=== PATIENT | male | born 1965 | race Caucasian/White ===

== ENCOUNTER 2016-12-29 09:38 | Emergency (ER) ==
[2016-12-29 09:39] VITALS: BMI 32.5
[2016-12-29 10:00] VITALS: BP 149/86; TEMP 96.3
--- NOTE | 2016-12-29 10:01 | ED.PDOC ---
General ED Provider: Dr. CARISA GARCIA JR Chief Complaint: Abdominal Pain Stated Complaint: NAUSEA , VOMITING , DIARRHEA, ABD PAIN[End]since yesterday 96.3 87 18 96% 149/86 01/03 PEPTO BISMOL TODAY. IMMODIUM AD YESTERDAY Time Seen by Physician: 10:01 Mode of Arrival: Walk-In Information Source: Patient Exam Limitations: No limitations Nursing and Triage Documentation Reviewed and Agree: No Review of Systems - Review Of Systems Constitutional: Reports: Malaise, Weakness Eyes: Reports: No symptoms Ears, Nose, Mouth, Throat: Reports: No symptoms Respiratory: Reports: No symptoms Cardiac: Reports: No symptoms GI: Reports: Diarrhea, Nausea, Vomiting : Reports: No symptoms Musculoskeletal: Reports: No symptoms Skin: Reports: No symptoms Neurological: Reports: No symptoms Endocrine: Reports: No symptoms Hematologic/Lymphatic: Reports: No symptoms All Other Systems: Other Past Medical History - Past Medical History Previously Healthy: Yes Endocrine: Reports: Unknown Cardiovascular: Reports: Unknown Respiratory: Reports: None, Unknown Hematological: Reports: None, Unknown Gastrointestinal: Reports: Unknown Genitourinary: Reports: Unknown Neuro/Psych: Reports: Unknown Musculoskeletal: Reports: None Cancer: Reports: Unknown - Surgical History General Surgical History: Reports: Orthopedic (conveyor fell on feet multiple surgeries ) - Family History Family History: Reports: Unknown - Social History Smoking Status: Former smoker Hx Substance Use: No Alcohol Screening: None Physical Exam - Physical Exam Appearance: Well-appearing, Obese Ill-appearing: Moderate Pain Distress: Moderate Eyes: MAUREEN, EOMI, Conjunctiva clear ENT: Ears normal, Nose normal, Oropharynx normal Neck: Supple Respiratory: Airway patent, Breath sounds clear, Breath sounds equal, Respirations nonlabored Cardiovascular: RRR, Pulses normal, No rub, No murmur GI/: Soft, Nontender, No masses, Bowel sounds normal, No Organomegaly Musculoskeletal: Normal strength, ROM intact, No edema, No calf tenderness Skin: Warm, Dry, Normal color Neurological: Sensation intact, Motor intact, Reflexes intact, Cranial nerves intact, Alert, Oriented Psychiatric: Affect appropriate, Mood appropriate Critical Care Note - Critical Care Note Total Time (mins): 0 Course - Course Hematology/Chemistry: 12/29/16 10:30 12/29/16 10:30 Orders, Labs, Meds: Lab Review 12/29/16 10:30 WBC 9.20 RBC 5.60 Hgb 16.8 Hct 49.4 MCV 88.2 MCH 30.0 MCHC 34.0 RDW Coeff of Kwasi 14.5 Plt Count 285 Immature Gran % (Auto) 0.8 Neut % (Auto) 75.8 Lymph % (Auto) 13.2 [place] % (Auto) 7.4 Eos % (Auto) 2.6 Baso % (Auto) 0.2 Immature Gran # (Auto) 0.1 Neut # 7.0 H Lymph # 1.2 [place] # 0.7 Eos # 0.2 Baso # 0.0 Sodium 138 Potassium 4.4 Chloride 107 Carbon Dioxide 21 Anion Gap 14.4 BUN 23 H Creatinine 0.93 Estimated GFR (MDRD) 85.00 BUN/Creatinine Ratio 24.73 Glucose 135 H Calcium 9.3 Magnesium 2.1 Total Bilirubin 0.33 AST 21 ALT 36 Alkaline Phosphatase 130 Total Protein 7.6 Albumin 3.8 Globulin 3.8 Albumin/Globulin Ratio 1.00 Amylase 55 Lipase 35 H. pylori IgG Antibody Negative Orders Category Date Time Status ED IV/MEDIPORT/POWERPORT .ONCE EMERGENCY 12/29/16 10:22 Active IV [ED IV/MEDIPORT/POWERPORT] .ONCE EMERGENCY 12/29/16 10:21 Active AMYLASE Stat LAB 12/29/16 10:30 Completed CBC W/ AUTO DIFF Stat LAB 12/29/16 10:30 Completed COMPREHENSIVE METABOLIC PANEL Stat LAB 12/29/16 10:30 Completed H. PYLORI SCREEN Stat LAB 12/29/16 10:30 Completed LIPASE Stat LAB 12/29/16 10:30 Completed MAGNESIUM Stat LAB 12/29/16 10:30 Completed 0.9 % Sodium Chloride [Saline Flush] MEDS 12/29/16 10:21 Discontinued 1 syr IVF PRN PRN Ondansetron HCl/Pf [Zofran 4 mg/2 ml] MEDS 12/29/16 10:46 Discontinued 4 mg IM ONCE STA Ondansetron HCl/Pf [Zofran 4 mg/2 ml] MEDS 12/29/16 10:24 Discontinued 4 mg IVP ONCE STA Medications Discontinued Medications Generic Name Dose Route Start Last Admin Trade Name Freq PRN Reason Stop Dose Admin Ondansetron HCl 4 mg 12/29/16 10:24 12/29/16 13:11 Zofran 4 Mg/2 Ml IVP 12/29/16 10:25 Not Given ONCE STA Ondansetron HCl 4 mg 12/29/16 10:46 12/29/16 10:58 Zofran 4 Mg/2 Ml IM 12/29/16 10:47 4 mg ONCE STA Administration Sodium Chloride 1 syr 12/29/16 10:21 Saline Flush IVF PRN PRN To flush IV Vital Signs: Temp Pulse Resp BP Pulse Ox 12/29/16 09:42 96.3 F L 87 18 149/86 H 96 Departure - Departure Time of Disposition: 12:48 Disposition: HOME SELF-CARE Discharge Problem: Gastroenteritis Instructions: Gastroenteritis (ED) Condition: Fair Pt referred to PMD for follow-up: Yes Additional Instructions: increase fluids 8-10 cups daily for three days Zofran four times a day as needed for nausea peptobismol for loose stools return if fever over 101.0 if not voiding more than three times each day Prescriptions: Ondansetron HCl [Zofran Tab] 4 mg PO QID PRN #12 tablet PRN Reason: Nausea / Vomiting Promethazine HCl [Phenergan Tab] 25 mg PO QID PRN #12 tablet PRN Reason: Nausea / Vomiting Allergies/Adverse Reactions: Allergies No Known Allergies Allergy (Verified 12/29/16 09:41) Home Medications: Ambulatory Orders Ondansetron HCl [Zofran Tab] 4 mg PO QID PRN #12 tablet 12/29/16 Promethazine HCl [Phenergan Tab] 25 mg PO QID PRN #12 tablet 12/29/16 Disposition Discussed With: Patient
[2016-12-29] MEDS ORDERED: ZOFRAN 4 MG/2 ML IVP STA (10:24)
[2016-12-29 10:43] LABS: BASOPHILS % (AUTO) 0.2 % (0.0-3.0); EOSINOPHILS # (AUTO) 0.2 K/ul (0.0-0.7); EOSINOPHILS % (AUTO) 2.6 % (0.0-7.0); HEMATOCRIT 49.4 % (42.0-52.0); HEMOGLOBIN 16.8 g/dl (14.0-18.0); IMMATURE GRANULOCYTE % (AUTO) 0.8 % (0.0-5.0); LYMPHOCYTES # (AUTO) 1.2 K/uL (0.60-3.4); LYMPHOCYTES % (AUTO) 13.2 (10.0-50.0); MEAN CORPUSCULAR VOLUME 88.2 fl (80.0-94.0); MONOCYTES # (AUTO) 0.7 K/uL (0.4-2.0); MONOCYTES % (AUTO) 7.4 (0-10); NEUTROPHILS % (AUTO) 75.8; PLATELET COUNT 285 10^3/uL (140-440)
[2016-12-29] MEDS ORDERED: ZOFRAN 4 MG/2 ML IM STA (10:46)
[2016-12-29 11:01] LABS: H. PYLORI ANTIBODY NEGATIVE (NEGATIVE); H.PYLORI INTERNAL QC INTERNAL QC VALID
[2016-12-29 11:44] LABS: ALBUMIN 3.8 g/dL (3.4-5.0); ANION GAP 14.4; BILIRUBIN,TOTAL 0.33 mg/dL (0.00-1.20); BUN/CREATININE RATIO 24.73; CALCIUM 9.3 mg/dL (8.2-10.2); CREATININE 0.93 mg/dL (0.60-1.10); MAGNESIUM 2.1 mg/dL (1.7-2.2); POTASSIUM 4.4 mmol/L (3.5-5.1); TOTAL PROTEIN 7.6 g/dL (6.4-8.2)
== END 2016-12-29 13:18 | disposition home or self-care (01) ==
LOC: ED 09:38
DX: K52.9 Noninfective gastroenteritis and colitis, unspecified (principal)
CPT/HCPCS: 36415; 80053; 82150; 83690; 83735; 85025; 86677; 96372; 99283

== ENCOUNTER 2017-09-27 23:38 | Emergency (ER) ==
[2017-09-27 23:49] VITALS: BP 135/91; TEMP 98.2; BMI 35.2
--- NOTE | 2017-09-28 00:05 | ED.PDOC ---
General ED Provider: Dr. HAM RAMOS Chief Complaint: Abdominal Pain Stated Complaint: Patient states that he has been having right groin pain for the past 3 -4 days. He has also been lifting his family member whos is disabled and every time he tries to lift it hurts. Also every time he tries to bend or twist the pain is worse. Denies any nausea vomiting or anorexia. Time Seen by Physician: 00:03 Mode of Arrival: Walk-In Information Source: Patient Exam Limitations: No limitations Nursing and Triage Documentation Reviewed and Agree: Yes GI Complaint Exam - Abdominal Pain Complaint/Exam Onset: Sudden Duration: 4 days Symptoms Are: Still present Timing: Constant Initial Severity: Severe Current Severity: Mild Location of Pain: RLQ Radiates To: Reports: Inguinal Character: Reports: Sharp Aggravating: Reports: Movement Alleviating: Reports: Position Associated Signs and Symptoms: Denies: Diaphoresis, Fever, Cough, Chest pain, Dizziness, Back pain, Constipation, Blood in stool, Dysuria, Urinary frequency, Decreased urine output, Decreased appetite, Discharge, Nausea, Vomiting, Diarrhea, Decreased activity AAA Risk Factors: Reports: None Testicular Torsion Risk Factors: Reports: None Surgical Obstruction Risk Factors: Reports: None Related Surgical History: Reports: None Abdominal Findings: Present: [place]'s Point tender, Hernia. Absent: Pulsatile mass, Abdominal distention, Unequal femoral pulses, Rebound tenderness , Peritoneal signs, CVA Tenderness Rectal Exam: Present: Normal Findings Differential Diagnoses: Appendicitis, Bowel Obstruction, Pancreatitis, Renal Colic Review of Systems - Review Of Systems Constitutional: Reports: No symptoms Eyes: Reports: No symptoms Ears, Nose, Mouth, Throat: Reports: No symptoms Respiratory: Reports: No symptoms Cardiac: Reports: No symptoms GI: Reports: Abdominal pain (Right lower quadrant) : Reports: No symptoms Musculoskeletal: Reports: Joint pain (right hip area pain ) Skin: Reports: No symptoms Neurological: Reports: No symptoms Endocrine: Reports: No symptoms Hematologic/Lymphatic: Reports: No symptoms All Other Systems: Reviewed and Negative Past Medical History - Past Medical History Previously Healthy: Yes Endocrine: Reports: Unknown Cardiovascular: Reports: Unknown Respiratory: Reports: None, Unknown Hematological: Reports: None, Unknown Gastrointestinal: Reports: Unknown Genitourinary: Reports: Unknown Neuro/Psych: Reports: Unknown Musculoskeletal: Reports: None Cancer: Reports: Unknown - Surgical History General Surgical History: Reports: Orthopedic (conveyor fell on feet multiple surgeries ) - Family History Family History: Reports: Unknown - Social History Smoking Status: Former smoker Hx Substance Use: No Alcohol Screening: None - Immunizations Tetanus Shot up to Date: No Physical Exam - Physical Exam Appearance: Ill-appearing, Obese Ill-appearing: Moderate Pain Distress: Severe Neck: Supple Respiratory: Airway patent, Breath sounds clear, Breath sounds equal, Respirations nonlabored Cardiovascular: RRR, Pulses normal, No rub, No murmur GI/: Bowel sounds normal, Tender Musculoskeletal: Limited ROM (Right hip pain with Range of motion.) Skin: Warm, Dry, Normal color Neurological: Sensation intact, Alert, Oriented Psychiatric: Anxious Interpretation - Radiology Interpretation Radiology Interpretation By: Radiologist Radiology Results: No acute changes (Diverticulosis) Exam Interpreted: CT Scan Critical Care Note - Critical Care Note Total Time (mins): 0 Course - Course Hematology/Chemistry: 09/28/17 00:13 09/28/17 00:13 Orders, Labs, Meds: Lab Review 09/28/17 09/28/17 09/28/17 00:05 00:13 00:13 WBC 7.50 RBC 5.13 Hgb 15.4 Hct 44.5 MCV 86.7 MCH 30.0 MCHC 34.6 RDW Coeff of Kwasi 14.3 Plt Count 238 Immature Gran % (Auto) 0.7 Neut % (Auto) 59.3 Lymph % (Auto) 28.3 [place] % (Auto) 9.2 Eos % (Auto) 2.0 Baso % (Auto) 0.5 Immature Gran # (Auto) 0.1 Neut # 4.5 Lymph # 2.1 [place] # 0.7 Eos # 0.2 Baso # 0.0 Sodium 141 Potassium 3.8 Chloride 107 Carbon Dioxide 24 Anion Gap 13.8 BUN 20 H Creatinine 0.86 Estimated GFR (MDRD) 93.00 BUN/Creatinine Ratio 23.25 Glucose 177 H Calcium 9.1 Total Bilirubin 0.17 AST 19 ALT 27 Alkaline Phosphatase 95 Total Protein 6.7 Albumin 3.3 L Globulin 3.4 Albumin/Globulin Ratio 0.97 Amylase 25 Lipase 17 Urine Color Yellow Urine Clarity Clear Urine pH 6.5 Ur Specific [place] 1.020 Urine Protein Negative Urine Glucose (UA) Negative Urine Ketones Negative Urine Blood Trace-lysed Urine Nitrite Negative Urine Bilirubin Negative Urine Urobilinogen 1.0 Ur Leukocyte Esterase Negative Urine Microscopic RBC 0-2 Ur Squamous Epith Cells 0-2 Orders Category Date Time Status AMYLASE Stat LAB 09/28/17 00:13 Completed CBC W/ AUTO DIFF Stat LAB 09/28/17 00:13 Completed COMPREHENSIVE METABOLIC PANEL Stat LAB 09/28/17 00:13 Completed LIPASE Stat LAB 09/28/17 00:13 Completed URINALYSIS C & S IF INDICATED Stat LAB 09/28/17 00:05 Completed Tramadol HCl [Ultram] MEDS 09/28/17 00:57 Discontinued 50 mg PO ONCE STA CT ABD/PEL WO RENAL STONE PROT Stat RADS 09/28/17 00:02 Completed Medications Discontinued Medications Generic Name Dose Route Start Last Admin Trade Name Freq PRN Reason Stop Dose Admin Tramadol HCl 50 mg 09/28/17 00:57 09/28/17 01:02 Ultram PO 09/28/17 00:58 50 mg ONCE STA Administration Vital Signs: Temp Pulse Resp BP Pulse Ox 09/27/17 23:38 98.2 F 85 20 135/91 H 94 L Departure - Departure Time of Disposition: 00:50 Disposition: HOME SELF-CARE Discharge Problem: Abdominal pain Instructions: Acute Abdominal Pain (ED) Condition: Fair Pt referred to PMD for follow-up: Yes Additional Instructions: Follow up with PCP in 3 days. Rest from lifting. Prescriptions: Tramadol HCl [Ultram] 50 mg PO Q6H PRN #14 tablet PRN Reason: Severe Pain Allergies/Adverse Reactions: Allergies codeine [From Tylenol-Codeine #3] Adverse Reaction (Verified 09/27/17 23:50) "GET REAL HOT" Home Medications: Ambulatory Orders Tramadol HCl [Ultram] 50 mg PO Q6H PRN #14 tablet 09/28/17
[2017-09-28 00:19] LABS: BASOPHILS % (AUTO) 0.5 % (0.0-3.0); EOSINOPHILS # (AUTO) 0.2 K/ul (0.0-0.7); HEMATOCRIT 44.5 % (42.0-52.0); HEMOGLOBIN 15.4 g/dl (14.0-18.0); IMMATURE GRANULOCYTE % (AUTO) 0.7 % (0.0-5.0); LYMPHOCYTES # (AUTO) 2.1 K/uL (0.60-3.4); LYMPHOCYTES % (AUTO) 28.3 (10.0-50.0); MEAN CORPUSCULAR HGB CONC 34.6 (31.8-35.4); MEAN CORPUSCULAR VOLUME 86.7 fl (80.0-94.0); MONOCYTES # (AUTO) 0.7 K/uL (0.4-2.0); MONOCYTES % (AUTO) 9.2 (0-10); NEUTROPHILS # (AUTO) 4.5 K/ul (2.0-6.9); NEUTROPHILS % (AUTO) 59.3; PLATELET COUNT 238 10^3/uL (140-440); RED BLOOD COUNT 5.13 10^6/ul (4.70-6.10)
[2017-09-28 00:22] LABS: ADD URINE MICROSCOPIC YES; BILIRUBIN,URINE Negative (NEGATIVE); KETONES,URINE Negative (NEGATIVE); LEUKOCYTE ESTERASE ,URINE Negative (NEGATIVE); NITRITE,URINE Negative (NEGATIVE); PH,URINE 6.5 (5-9); PROTEIN,URINE Negative (NEGATIVE); URINE, BLOOD Trace-lysed (NEGATIVE)
[2017-09-28 00:39] LABS: ALBUMIN 3.3 g/dL (3.4-5.0); ALBUMIN/GLOBULIN RATIO 0.97; ANION GAP 13.8; BILIRUBIN,TOTAL 0.17 mg/dL (0.00-1.20); BUN/CREATININE RATIO 23.25; CALCIUM 9.1 mg/dL (8.2-10.2); CREATININE 0.86 mg/dL (0.60-1.10); POTASSIUM 3.8 mmol/L (3.5-5.1); TOTAL PROTEIN 6.7 g/dL (6.4-8.2)
--- NOTE | 2017-09-28 00:46 | CT ---
EXAM: CT of the abdomen and pelvis without contrast. HISTORY: Abdominal pain. PROCEDURE: Contiguous axial CT images of the abdomen and pelvis without contrast with coronal and sa gittal reformats. FINDINGS: Comparison made with CT of 10/26/2014. There is a stable 0.4 cm nodule in the right lung/lo wer lobe. The liver, gallbladder, pancreas, spleen, adrenal glands and left kidney are normal in [place]. There is a fluid density cyst in the right kidney. No nephrolithiasis, ureterolithiasis or h ydronephrosis. The abdominal aorta is within normal limits in diameter. The appendix is normal in ap [place]. There is diverticulosis of the colon with no evidence of diverticulitis. No free fluid or free air in the abdomen or pelvis. The bladder is minimally filled with no abnormality identified. The seminal vesicles and prostate gland are unremarkable. There are degenerative changes in the spin e. Impression: Diverticulosis of the colon without diverticulitis. Right renal cyst. Stable 0.4 cm nodule in the right lung/lower lobe. No further follow-up required.
[2017-09-28] MEDS ORDERED: ULTRAM PO STA (00:57)
== END 2017-09-28 01:09 | disposition home or self-care (01) ==
LOC: ED 23:38
DX: R10.31 Right lower quadrant pain (principal)
CPT/HCPCS: 36415; 74176; 80053; 81001; 82150; 83690; 85025; 99283

== ENCOUNTER 2017-11-17 09:32 | Outpatient (CLI) ==
[2013-04-05 06:40] VITALS: TEMP 97.8
--- NOTE | 2017-11-17 09:52 | DI ---
EXAM: PA and lateral views of the chest HISTORY: Cough with history of asthma COMPARISON: Chest x-ray 10/13/2014, CT chest 04/05/2013 and multiple priors FINDINGS: The cardiomediastinal silhouette is normal. There is no pneumothorax or pleural effusion. There is no consolidation, nodule or mass. The osseous structures are stable. IMPRESSION: No acute cardiopulmonary process
== END 2017-11-17 09:33 | disposition home or self-care (01) ==
LOC: RAD 09:32
PROVIDERS: ATTEND Family Medicine
DX: R05 Cough (principal); Z87.09 Personal history of other diseases of the respiratory system

== ENCOUNTER 2018-01-27 16:04 | Outpatient (CLI) ==
[2013-04-05 06:40] VITALS: TEMP 97.8
== END 2018-01-27 16:05 | disposition home or self-care (01) ==
LOC: FCC-LAB 16:04
PROVIDERS: ATTEND Family Medicine
DX: R31.9 Hematuria, unspecified (principal)
CPT/HCPCS: 87086

== ENCOUNTER 2018-02-24 13:02 | Outpatient (CLI) ==
[2013-04-05 06:40] VITALS: TEMP 97.8
== END 2018-02-24 13:03 | disposition home or self-care (01) ==
LOC: FCC-LAB 13:02
PROVIDERS: ATTEND Family Medicine
DX: Z86.39 Personal history of other endocrine, nutritional and metabolic disease (principal)
CPT/HCPCS: 36415; 80053; 83036

== ENCOUNTER 2018-03-03 08:21 | Outpatient (CLI) ==
[2013-04-05 06:40] VITALS: TEMP 97.8
--- NOTE | 2018-03-03 09:20 | US ---
EXAM: Scrotal ultrasound. History: Enlarged testicles. Technique: Multiple sonographic images through the scrotum were obtained. Color duplex Doppler was used to interrogate vascular flow. Findings: The right testicle measures 4.3 cm x 2.7 cm x 2.7 cm. Blood flow was documented within the right maria teresa ticle. No right intratesticular masses are identified. The right epididymis is not hyperemic. The left testicle measures 4.2 cm x 2.3 cm x 2.9 cm. Blood flow was documented within the left testic le. No left intratesticular masses are identified. 5 mm left epididymal head cyst. The left epidid ymis is not hyperemic. There is skin thickening and subcutaneous edema involving the left scrotal sac. Moderate bilateral hydroceles. No varicoceles identified. Impression: 1. Normal bilateral testicles. 2. Moderate bilateral hydroceles. 3. Small left epididymal head cyst. 4. Skin thickening and subcutaneous edema involving the left scrotal sac. Correlate for cellulitis.
== END 2018-03-03 08:22 | disposition home or self-care (01) ==
LOC: RAD 08:21
PROVIDERS: ATTEND Family Medicine
DX: N50.89 Other specified disorders of the male genital organs (principal)

== ENCOUNTER 2018-03-09 09:48 | Outpatient (CLI) ==
[2013-04-05 06:40] VITALS: TEMP 97.8
--- NOTE | 2018-03-09 11:06 | DI ---
EXAM: Radiographs, sacrum and coccyx HISTORY: Back pain. COMPARISON: Pelvic CT 09/28/2017. TECHNIQUE: Three views. FINDINGS: Bone mineralization is normal. Sacral arcuate lines appear intact. Some ankylosis of the left sacroiliac joint suggested. Right sacroiliac joint is normal. Curvature and alignment are nor mal without fracture Lower lumbar degenerative changes are incompletely imaged. Soft tissues are unr emarkable. IMPRESSION: 1. No acute fracture. 2. 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 3. Lower lumbar degenerative changes, incompletely imaged.
== END 2018-03-09 09:49 | disposition home or self-care (01) ==
LOC: RAD 09:48
PROVIDERS: ATTEND Nurse Practitioner Family
DX: K62.89 Other specified diseases of anus and rectum (principal)

== ENCOUNTER 2018-03-10 09:49 | Outpatient (CLI) ==
[2013-04-05 06:40] VITALS: TEMP 97.8
== END 2018-03-10 09:50 | disposition home or self-care (01) ==
LOC: FCC-LAB 09:49
PROVIDERS: ATTEND Family Medicine
DX: E11.9 Type 2 diabetes mellitus without complications (principal); G62.89 Other specified polyneuropathies
CPT/HCPCS: 36415; 80061; 82043; 82607

== ENCOUNTER 2018-05-20 09:54 | Outpatient (CLI) ==
[2013-04-05 06:40] VITALS: TEMP 97.8
== END 2018-05-20 09:55 | disposition home or self-care (01) ==
LOC: FCC-LAB 09:54
PROVIDERS: ATTEND Family Medicine
DX: R35.0 Frequency of micturition (principal); R31.9 Hematuria, unspecified
CPT/HCPCS: 36415; 81001

== ENCOUNTER 2018-07-19 23:58 | Emergency (ER) | payer OTHER ==
[2018-07-20 00:06] VITALS: TEMP 98.9
--- NOTE | 2018-07-20 00:35 | ED.PDOC ---
General ED Provider: Dr. HAM RAMOS Chief Complaint: Chest Wall Injury/Pain Stated Complaint: Pateint states that he lifted furiture now has severe pain on the chest that is intermittent. Denies any Trauma to the chest Time Seen by Physician: 00:15 Mode of Arrival: Walk-In Information Source: Patient Exam Limitations: No limitations Primary Care Provider: NIRMALA MCGRATH Nursing and Triage Documentation Reviewed and Agree: Yes Does patient meet sepsis criteria?: No System Inflammatory Response Syndrome: Not Applicable Sepsis Protocol: For patient's 13 years and over: Temp is 96.8 and below OR 101 and greater Pulse >90 BPM Resp >20/minute Acutely Altered Mental Status Are patient's symptoms suggestive of a new infection, such as: -Pneumonia -Skin, Soft Tissue -Endocarditis -UTI -Bone, Joint Infection -Implantable Device -Acute Abdominal Infection -Wound Infection -Meningitis -Blood Stream Catheter Infection -Unknown Cardiovascular Complaint Exam - Chest Pain Complaint/Exam Onset: Sudden Duration: 1 day Symptoms Are: Still present Timing: Intermittent Length of Chest Pain Episodes: few sec Location: Reports: Left anterior Pain Radiates: Reports: Back Character: Reports: Sharp Aggravating: Reports: Deep breaths Alleviating: Reports: Spontaneous resolution Associated Signs and Symptoms: Reports: Back pain. Denies: Diaphoresis, Nausea , Vomiting, Fever, Palpitations, Cough, Hemoptysis, Abdominal pain, Dizziness, Short of air, Calf pain, Calf swelling Related History: Denies: Similar episode, Current Michael Inhibitors, Current ARBs, Current Beta Hazel, Current Ca [place].Hazel, Current Diuretic, Rx noncompliance AMI/ACS Risk Factors: Reports: Diabetes, Hypertension, Smoking TAD Risk Factors: Reports: Hypertension, Smoking Pulmonary Embolism Risk Factors: Reports: Smoking Prior Care for this Complaint: No Recent Stress Test: No Recent Echo/LV Function: No JVD Present: No Subcutaneous Emphysema Present: No Diminshed Breath Sounds: No Reproducible Chest Wall Pain: No Bilateral Pulses Present: No Unequal Pulses Noted: No If Risk Factors for AMI/ACS Consider: EKG, Cardiac Enzymes Quality Indicator For Non-Traumatic Chest Pain/Syncope: EKG Performed Review of Systems - Review Of Systems Constitutional: Reports: No symptoms Eyes: Reports: No symptoms Ears, Nose, Mouth, Throat: Reports: No symptoms Respiratory: Reports: No symptoms Cardiac: Reports: Chest pain (with deep inspiration ) GI: Reports: No symptoms : Reports: No symptoms Musculoskeletal: Reports: No symptoms Skin: Reports: No symptoms Neurological: Reports: Anxiety Endocrine: Reports: No symptoms Hematologic/Lymphatic: Reports: No symptoms All Other Systems: Reviewed and Negative Past Medical History - Past Medical History Previously Healthy: Yes Endocrine: Reports: DM 2, Dyslipidemia Cardiovascular: Reports: Hypertension Respiratory: Reports: None, Unknown Hematological: Reports: None Gastrointestinal: Reports: None Genitourinary: Reports: None Neuro/Psych: Reports: None Musculoskeletal: Reports: None Cancer: Reports: None - Surgical History General Surgical History: Reports: Orthopedic (conveyor fell on feet multiple surgeries ) - Family History Family History: Reports: Unknown - Social History Smoking Status: Former smoker Hx Substance Use: No Alcohol Screening: None - Immunizations Tetanus Shot up to Date: No Physical Exam - Physical Exam Appearance: Ill-appearing, Well-nourished Pain Distress: Severe (but is intermitent) Eyes: MAUREEN, EOMI, Conjunctiva clear ENT: Oropharynx normal Neck: Supple Respiratory: Airway patent, Breath sounds clear, Breath sounds equal, Respirations nonlabored Cardiovascular: RRR, Pulses normal, No rub, No murmur GI/: Soft, Nontender, No masses, Bowel sounds normal, No Organomegaly Musculoskeletal: Normal strength, ROM intact, No edema, No calf tenderness Skin: Warm, Dry, Normal color Neurological: Sensation intact, Motor intact, Reflexes intact, Cranial nerves intact, Alert, Oriented Psychiatric: Affect appropriate, Mood appropriate Interpretation - Radiology Interpretation Radiology Interpretation By: ED Physician Radiology Results: Negative Exam Interpreted: Portable CXR Radiology Interpretation By: Radiologist Radiology Results: Negative Exam Interpreted: CT Scan (PE protochol negative for PE ) - EKG Interpretation Time of EKG #1: 00:27 Rate: Normal Rhythm: Sinus Ectopy: None [place]: [place] 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 Course - Course Hematology/Chemistry: 07/20/18 00:30 07/20/18 00:30 Orders, Labs, Meds: Lab Review 07/20/18 07/20/18 07/20/18 00:30 00:30 00:30 WBC 8.88 RBC 5.04 Hgb 15.3 Hct 44.2 MCV 87.7 MCH 30.4 MCHC 34.6 RDW Coeff of Kwasi 13.8 Plt Count 247 Immature Gran % (Auto) 0.2 Neut % (Auto) 65.1 Lymph % (Auto) 26.1 [place] % (Auto) 6.6 Eos % (Auto) 1.5 Baso % (Auto) 0.5 Immature Gran # (Auto) 0.0 Neut # (Auto) 5.8 Lymph # (Auto) 2.3 [place] # (Auto) 0.6 Eos # (Auto) 0.1 Baso # (Auto) 0.0 D-Dimer (Manual) 776.86 Sodium 137.7 Potassium 3.56 Chloride 105.6 Carbon Dioxide 24.2 Anion Gap 11.46 BUN 26.1 H Creatinine 0.83 Estimated GFR (MDRD) 96.00 BUN/Creatinine Ratio 31.44 Glucose 104.5 Calcium 9.17 Total Bilirubin 0.36 AST 31.8 ALT 21.6 Alkaline Phosphatase 110.4 Total Creatine Kinase 112.5 Troponin I < 0.012 Total Protein 7.78 Albumin 4.17 Globulin 3.61 Albumin/Globulin Ratio 1.15 Orders Category Date Time Status EKG-(ED ONLY) Stat CARDIO 07/20/18 00:26 Completed NPO REMINDER: IMAGING ONCE CARE 07/20/18 01:54 Active ED IV/MEDIPORT/POWERPORT .ONCE EMERGENCY 07/20/18 01:53 Active CBC W/ AUTO DIFF Stat LAB 07/20/18 00:30 Completed COMPREHENSIVE METABOLIC PANEL Stat LAB 07/20/18 00:30 Completed CREATINE KINASE Stat LAB 07/20/18 00:30 Completed D-DIMER Stat LAB 07/20/18 00:30 Completed TROPONIN I Stat LAB 07/20/18 00:30 Completed 0.9 % Sodium Chloride [Saline Flush] MEDS 07/20/18 01:53 Discontinued 1 syr IVF PRN PRN Hydromorphone HCl [Dilaudid 1 mg/ml Syringe] MEDS 07/20/18 01:53 Discontinued 1 mg IVP ONCE STA Ketorolac Tromethamine [Toradol] MEDS 07/20/18 00:49 Discontinued 60 mg IM ONCE STA Ondansetron HCl/Pf [Zofran 4 mg/2 ml] MEDS 07/20/18 01:53 Discontinued 4 mg IVP ONCE STA Sodium Chloride 0.9% [Sodium Chloride] 1,000 ml MEDS 07/20/18 01:53 Discontinued IV BOLUS CHEST, 1V AP ONLY Stat RADS 07/20/18 00:[address] CHEST PE PROTOCOL Stat RADS 07/20/18 01:53 Completed Medications Discontinued Medications Generic Name Dose Route Start Last Admin Trade Name Freq PRN Reason Stop Dose Admin Hydromorphone HCl 1 mg 07/20/18 01:53 07/20/18 02:09 Dilaudid 1 Mg/Ml Syringe IVP 07/20/18 01:54 1 mg ONCE STA Administration Sodium Chloride 1,000 mls @ 1,000 mls/hr 07/20/18 01:53 07/20/18 02:08 Sodium Chloride IV 07/20/18 02:52 1,000 mls/hr BOLUS STA Administration Ketorolac Tromethamine 60 mg 07/20/18 00:49 07/20/18 00:58 Toradol IM 07/20/18 00:50 60 mg ONCE STA Administration Ondansetron HCl 4 mg 07/20/18 01:53 07/20/18 02:08 Zofran 4 Mg/2 Ml IVP 07/20/18 01:54 4 mg ONCE STA Administration Sodium Chloride 1 syr 07/20/18 01:53 07/20/18 02:06 Saline Flush IVF 1 syr PRN PRN Administration To flush IV Vital Signs: Temp Pulse Resp BP Pulse Ox 07/20/18 01:04 71 20 121/86 96 07/19/18 23:59 98.9 F 85 20 153/107 H 95 EZ Risk Score Age >/= 65: No >/= 3 CAD Risk Factors: Yes ASA Use in Past 7 Days: No Severe Angina (>/= 2 episodes in 24 hours): No EKG ST Changes >/= 0.5mm: No Postive Cardiac Marker: No ZE Total Score: 1 EZ Risk Score: Risk Score Odds of by 30D 0 0.1 (0.1-0.2) 1 0.3 (0.2-0.3) 2 0.4 (0.3-0.5) 3 0.7 (0.6-0.9) 4 1.2 (1.0-1.5) 5 2.2 (1.9-2.6) 6 3.0 (2.5-3.6) 7 4.8 (3.8-6.1) Departure - Departure Time of Disposition: 03:20 Disposition: HOME SELF-CARE Discharge Problem: Chest wall pain, Pleurisy without effusion Instructions: Pleurisy (ED) Condition: Stable Pt referred to PMD for follow-up: Yes IPMP verified?: No Additional Instructions: Take Medications as prescribed Follow up with PCP in 3 days Prescriptions: Hydrocodone Bit/Acetaminophen [[place] 5-325] 1 each PO Q6HR PRN #15 tablet PRN Reason: severe pain Ibuprofen [Motrin] 600 mg PO Q6H PRN #30 tablet PRN Reason: Analgesia Allergies/Adverse Reactions: Allergies codeine [From Tylenol-Codeine #3] Adverse Reaction (Verified 07/20/18 00:06) "GET REAL HOT" Home Medications: Ambulatory Orders Hydrocodone Bit/Acetaminophen [[place] 5-325] 1 each PO Q6HR PRN #15 tablet Ibuprofen [Motrin] 600 mg PO Q6H PRN #30 tablet 07/20/18 Disposition Discussed With: Patient
[2018-07-20] MEDS ORDERED: TORADOL IM STA (00:49)
[2018-07-20 01:05] VITALS: BP 121/86
[2018-07-20] MEDS ORDERED: ZOFRAN 4 MG/2 ML IVP STA (01:53)
[2018-07-20] MEDS ORDERED: SODIUM CHLORIDE 1,000 ML IV STA (01:53)
[2018-07-20] MEDS ORDERED: DILAUDID 1 MG/ML SYRINGE IVP STA (01:53)
--- NOTE | 2018-07-20 03:20 | CT ---
EXAM: CTA thorax HISTORY: Chest pain elevated D-dimer COMPARISON: CTA thorax 04/05/2013 FINDINGS: Contiguous axial images obtained through the thorax following uneventful administration in travenous contrast utilizing 3-mm collimation. Sagittal and coronal reconstructions were imaged and r eviewed. Source images were utilized to create rotating 3-D MIP images.. The thoracic inlet is unre markable. There are subcentimeter pretracheal and right hilar lymph nodes. There are calcified righ t infrahilar lymph nodes.. The ascending aorta is ectatic measuring 3.9 cm.. The heart is top jean l in size without pericardial effusion There is no evidence of pulmonary embolus.. There is no evid ence of infiltrate or effusion.. There is a stable peripheral 3 mm nodule at the right lung base. T here is also stable ground-glass nodule at the left lung base measuring 3.3 mm.. Bone windows reveal s no evidence of lytic or blastic lesions. IMPRESSION: There is no evidence of pulmonary embolus. Ectatic ascending aorta.. Stable bibasilar nodules
--- NOTE | 2018-07-20 07:03 | DI ---
EXAM: Single AP view of the chest HISTORY: Chest pain. COMPARISON: Chest x-ray 11/17/2017 and multiple priors including same day CT chest FINDINGS: Cardiomediastinal silhouette is normal. There is no pneumothorax or pleural effusion. The re is no consolidation, nodule or mass. The pulmonary nodules seen on same day CT are not visualized on chest x-ray. The osseous structures demonstrate no acute osseous abnormality. IMPRESSION: No acute cardiopulmonary process.
== END 2018-07-20 03:30 | disposition home or self-care (01) ==
LOC: ED 23:58
DX: R07.89 Other chest pain (principal); R09.1 Pleurisy; I10 Essential (primary) hypertension; E11.9 Type 2 diabetes mellitus without complications; F17.210 Nicotine dependence, cigarettes, uncomplicated
CPT/HCPCS: 36415; 80053; 82550; 84484; 85025; 85379; 93005; 93010; 96361; 96372; 96374; 96375; 99283

== ENCOUNTER 2018-07-28 08:52 | Outpatient (CLI) ==
[2013-04-05 06:40] VITALS: TEMP 97.8
== END 2018-07-28 08:53 | disposition home or self-care (01) ==
LOC: FCC-LAB 08:52
PROVIDERS: ATTEND Family Medicine
DX: E11.9 Type 2 diabetes mellitus without complications (principal)
CPT/HCPCS: 36415; 83037

== ENCOUNTER 2018-11-10 23:09 | Emergency (ER) ==
[2018-11-10 23:21] VITALS: TEMP 97.6; BMI 30.1
[2018-11-10] MEDS ORDERED: DILAUDID 1 MG/ML SYRINGE IVP STA (23:25)
[2018-11-10] MEDS ORDERED: ZOFRAN 4 MG/2 ML IVP STA (23:26)
[2018-11-10] MEDS ORDERED: TORADOL IVP STA (23:27)
[2018-11-10] MEDS ORDERED: ASPIRIN CHEWABLE ONE (23:35)
[2018-11-10] MEDS ORDERED: ASPIRIN CHEWABLE PO STA (23:38)
[2018-11-11 00:26] VITALS: BP 137/94
--- NOTE | 2018-11-11 00:57 | CT ---
EXAM: CT angiogram chest with intravenous contrast 11/11/2018. Multi planar reformatted images obta ined. MIP and three-dimensional reconstructed images provided HISTORY: Chest pain COMPARISON: 07/20/2018, 04/05/2013 FINDINGS: The heart size appears within normal limits. No pericardial effusion. There are no pulmonary arterial filling defects to suggest pulmonary embolus. Small noncalcified nodule in the posterior left lower lobe on image 27 is unchanged as compared to . Small subpleural nodule the lateral right lower lobe on image 35 is also stable. The rachel e course of stability is consistent with benign etiology. Multifocal atelectasis. No pulmonary consolidation, effusion or pneumothorax. IMPRESSION: 1. No pulmonary embolus. 2. Atelectasis. 3. Bilateral small noncalcified pulmonary nodules which demonstrate long-term stability consistent w ith benign etiology.
--- NOTE | 2018-11-11 01:23 | ED.PDOC ---
General ED Provider: Dr. LIZBET AKHTAR-ER Chief Complaint: Chest Pain Stated Complaint: my chest hurts to move my body in certain positions Time Seen by Physician: 23:15 Mode of Arrival: Walk-In Information Source: Patient Exam Limitations: No limitations Primary Care Provider: NIRMALA MCGRATH Nursing and Triage Documentation Reviewed and Agree: Yes Does patient meet sepsis criteria?: No System Inflammatory Response Syndrome: Not Applicable Sepsis Protocol: For patient's 13 years and over: Temp is 96.8 and below OR 101 and greater Pulse >90 BPM Resp >20/minute Acutely Altered Mental Status Are patient's symptoms suggestive of a new infection, such as: -Pneumonia -Skin, Soft Tissue -Endocarditis -UTI -Bone, Joint Infection -Implantable Device -Acute Abdominal Infection -Wound Infection -Meningitis -Blood Stream Catheter Infection -Unknown Musculoskeletal Complaint Exam - Upper Extremity Complaint/Exam Location of Pain: Reports: Left, Shoulder Mechanism of Injury: Reports: No known trauma Onset/Duration: this evening Symptoms Are: Still present Initial Severity: Mild Current Severity: Moderate Location: Reports: Discrete (left chest wall) Character: Reports: Dull, Aching, Spasmodic Aggravating: Reports: Movement, Lifting, Flexion, Extension, Internal rotation Non-Orthopedic Risk Factors: Reports: None, Referred pain from chest NV Bundle Intact Distal to Injury: Yes Compartment Syndrome Risk Factors: Present: Pain Differential Diagnoses: Strain, Sprain, Other Quality Indicator For Non-Traumatic Chest Pain/Syncope: EKG Performed Review of Systems - Review Of Systems Constitutional: Reports: No symptoms Eyes: Reports: No symptoms Ears, Nose, Mouth, Throat: Reports: No symptoms Respiratory: Reports: No symptoms Cardiac: Reports: Chest pain (with movement) GI: Reports: No symptoms : Reports: No symptoms Musculoskeletal: Reports: No symptoms Skin: Reports: No symptoms Neurological: Reports: No symptoms Endocrine: Reports: No symptoms Hematologic/Lymphatic: Reports: No symptoms All Other Systems: Reviewed and Negative Past Medical History - Past Medical History Previously Healthy: Yes Endocrine: Reports: DM 2, Dyslipidemia Cardiovascular: Reports: Hypertension Respiratory: Reports: None, Unknown Hematological: Reports: None Gastrointestinal: Reports: None Genitourinary: Reports: None Neuro/Psych: Reports: None Musculoskeletal: Reports: None Cancer: Reports: None - Surgical History General Surgical History: Reports: Orthopedic (conveyor fell on feet multiple surgeries ) - Family History Family History: Reports: Unknown - Social History Smoking Status: Former smoker Hx Substance Use: No Alcohol Screening: None - Immunizations Tetanus Shot up to Date: Yes Physical Exam - Physical Exam Appearance: Well-appearing Pain Distress: Mild Eyes: MAUREEN ENT: Ears normal, Nose normal, Oropharynx normal Neck: Supple Respiratory: Airway patent, Breath sounds clear, Breath sounds equal, Respirations nonlabored Cardiovascular: RRR GI/: Soft Musculoskeletal: Normal strength, Limited ROM (exam of the left chest wall reveals tenderness with certain movements such as flexing the chest or moving up in the exam bed) Skin: Warm Neurological: Sensation intact Psychiatric: Affect appropriate, Mood appropriate Interpretation - Radiology Interpretation Radiology Interpretation By: Radiologist Radiology Results: Negative Exam Interpreted: CT Scan - EKG Interpretation Time of EKG #1: :24 Rate: Normal Rhythm: Sinus Ectopy: None Irwin: NL ST Segment: Normal Interpretation: nsr Re-Evaluation - Re-Evaluation Time of Re-Evaluation: 01:24 Status: Improved Vital Signs Stable: Yes Pain Level: 0 Appearance: NAD Lungs: Clear Skin: Warm and Dry Neuro: Alert and Oriented X3 CV: RRR Critical Care Note - Critical Care Note Total Time (mins): 0 Course - Course Hematology/Chemistry: 11/10/18 23:30 11/10/18 23:30 Orders, Labs, Meds: Lab Review 11/10/18 11/10/18 23:30 23:30 WBC 9.09 RBC 5.73 Hgb 17.5 Hct 50.7 MCV 88.5 MCH 30.5 MCHC 34.5 RDW Coeff of Kwasi 14.6 Plt Count 265 Immature Gran % (Auto) 0.3 Neut % (Auto) 59.4 Lymph % (Auto) 28.7 [place] % (Auto) 9.2 Eos % (Auto) 1.8 Baso % (Auto) 0.6 Immature Gran # (Auto) 0.0 Neut # (Auto) 5.4 Lymph # (Auto) 2.6 [place] # (Auto) 0.8 Eos # (Auto) 0.2 Baso # (Auto) 0.1 Sodium 137.8 Potassium 3.93 Chloride 102.5 Carbon Dioxide 31.9 H Anion Gap 7.33 BUN 20.9 H Creatinine 0.88 Estimated GFR (MDRD) 90.00 BUN/Creatinine Ratio 23.75 Glucose 97.7 Calcium 9.41 Total Bilirubin 0.49 AST 34.4 ALT 26.3 Alkaline Phosphatase 83.5 Total Creatine Kinase 52.2 L Troponin I < 0.012 Total Protein 8.63 H Albumin 4.71 Globulin 3.92 Albumin/Globulin Ratio 1.20 Amylase 99.4 Lipase 189.7 Orders Category Date Time Status EKG-(ED ONLY) Stat CARDIO 11/10/18 23:24 Ordered NPO REMINDER: IMAGING ONCE CARE 11/10/18 23:25 Completed ED IV/MEDIPORT/POWERPORT .ONCE EMERGENCY 11/10/18 23:24 Active AMYLASE Stat LAB 11/10/18 23:30 Completed CBC W/ AUTO DIFF Stat LAB 11/10/18 23:30 Completed COMPREHENSIVE METABOLIC PANEL Stat LAB 11/10/18 23:30 Completed CREATINE KINASE Stat LAB 11/10/18 23:30 Completed LIPASE Stat LAB 11/10/18 23:30 Completed TROPONIN I Stat LAB 11/10/18 23:30 Completed 0.9 % Sodium Chloride [Saline Flush] MEDS 11/10/18 23:23 Ordered 1 syr IVF PRN PRN Aspirin [Aspirin Chewable] MEDS 11/10/18 23:35 Discontinued 324 mg .ROUTE .STK-MED ONE Aspirin [Aspirin Chewable] MEDS 11/10/18 23:38 Discontinued 324 mg PO ONCE STA Hydromorphone HCl [Dilaudid 1 mg/ml Syringe] MEDS 11/10/18 23:25 Discontinued 1 mg IVP ONCE STA Ketorolac Tromethamine [Toradol] MEDS 11/10/18 23:27 Discontinued 30 mg IVP ONCE STA Ondansetron HCl/Pf [Zofran 4 mg/2 ml] MEDS 11/10/18 23:26 Discontinued 4 mg IVP ONCE STA CT CHEST PE PROTOCOL Stat RADS 11/10/18 23:25 Completed Medications Generic Name Dose Route Start Last Admin Trade Name Freq PRN Reason Stop Dose Admin Sodium Chloride 1 syr 11/10/18 23:23 Saline Flush IVF PRN PRN To flush IV Discontinued Medications Generic Name Dose Route Start Last Admin Trade Name Freq PRN Reason Stop Dose Admin Aspirin 324 mg 11/10/18 23:38 11/10/18 23:42 Aspirin Chewable PO 11/10/18 23:39 324 mg ONCE STA Administration Hydromorphone HCl 1 mg 11/10/18 23:25 11/10/18 23:32 Dilaudid 1 Mg/Ml Syringe IVP 11/10/18 23:26 1 mg ONCE STA Administration Ketorolac Tromethamine 30 mg 11/10/18 23:27 11/10/18 23:32 Toradol IVP 11/10/18 23:28 30 mg ONCE STA Administration Ondansetron HCl 4 mg 11/10/18 23:26 11/10/18 23:32 Zofran 4 Mg/2 Ml IVP 11/10/18 23:27 4 mg ONCE STA Administration i feel confident this left chest wall pain is musculoskeletal --its worse with certain movements--i dont feel this is cardiac pain--possibly pulled pectoralis muscle Vital Signs: Temp Pulse Resp BP Pulse Ox 11/11/18 00:25 67 18 137/94 H 96 11/10/18 23:10 97.6 F 80 20 156/100 H 97 Departure - Departure Time of Disposition: :26 Disposition: HOME SELF-CARE Discharge Problem: Chest wall pain Instructions: Chest Wall Pain (ED) Condition: Good Pt referred to PMD for follow-up: Yes IPMP verified?: No Additional Instructions: flexeril 10mg tid for spasm #30--heating pad--toradol 10mg qid prn pain #16//f/ u with pcp Allergies/Adverse Reactions: Allergies codeine [From Tylenol-Codeine #3] Adverse Reaction (Verified 11/10/18 23:15) "GET REAL HOT" Home Medications: Ambulatory Orders Metformin HCl 250 mg PO BID 11/10/18 Disposition Discussed With: Patient
== END 2018-11-11 01:34 | disposition home or self-care (01) ==
LOC: ED 23:09
DX: R07.89 Other chest pain (principal); E11.9 Type 2 diabetes mellitus without complications; E78.5 Hyperlipidemia, unspecified; I10 Essential (primary) hypertension
CPT/HCPCS: 36415; 80053; 82150; 82550; 83690; 84484; 85025; 93005; 93010; 96374; 96375; 99284

== ENCOUNTER 2018-11-14 07:35 | Emergency (ER) ==
[2018-11-14 07:39] VITALS: BP 134/91; TEMP 97.4; BMI 30.4
--- NOTE | 2018-11-14 08:06 | ED.PDOC ---
General ED Provider: Dr. LIZBET LOGAN Chief Complaint: Non-specific Complaint Stated Complaint: Nasal redness. The patient, a 53 y/o male presents c/o swelling to face around nose with associated redness. Patient states it started after he was in the ER on 11/10/18 for evaluation of chest pain. Was released to home and started on Lisinopril. In additon had CT scan with IV contrast which failed to reveal abnormality and he states he was told not to take his metformin for 48 hours but started it back after 24 hours out of concern for his BS elevation. Discussed potential complications associated with this including potential kidney failure. I addition patient was placed on cyclobenzoprine and ketorolac for the pain in his chest. Time Seen by Physician: 07:50 Mode of Arrival: Walk-In Information Source: Patient Exam Limitations: No limitations Primary Care Provider: NIRMALA MCGRATH Nursing and Triage Documentation Reviewed and Agree: Yes Does patient meet sepsis criteria?: No System Inflammatory Response Syndrome: Not Applicable Sepsis Protocol: For patient's 13 years and over: Temp is 96.8 and below OR 101 and greater Pulse >90 BPM Resp >20/minute Acutely Altered Mental Status Are patient's symptoms suggestive of a new infection, such as: -Pneumonia -Skin, Soft Tissue -Endocarditis -UTI -Bone, Joint Infection -Implantable Device -Acute Abdominal Infection -Wound Infection -Meningitis -Blood Stream Catheter Infection -Unknown EENT Complaint Exam - Nasal Complaint/Exam Onset/Duration: 24-36 hrs Symptoms Are: Worse Timing: Constant Initial Severity: Mild Current Severity: Moderate Location: Bilateral Aggravating: Reports: None Alleviating: Reports: None Associated Signs and Symptoms: Reports: Sinus pain (Nasal pain ) Related History: Denies: Similar episode Nasal Surgical History: Reports: None Foreign Body Present: No Septal Hematoma: No Differential Diagnoses: Other (Erysipelas) Review of Systems - Review Of Systems Constitutional: Reports: No symptoms Eyes: Reports: No symptoms Ears, Nose, Mouth, Throat: Reports: No symptoms Respiratory: Reports: No symptoms Cardiac: Reports: No symptoms GI: Reports: No symptoms : Reports: No symptoms Musculoskeletal: Reports: No symptoms Skin: Reports: No symptoms Neurological: Reports: No symptoms Endocrine: Reports: No symptoms Hematologic/Lymphatic: Reports: No symptoms All Other Systems: Reviewed and Negative Past Medical History - Past Medical History Previously Healthy: Yes Endocrine: Reports: DM 2, Dyslipidemia Cardiovascular: Reports: Hypertension Respiratory: Reports: None, Unknown Hematological: Reports: None Gastrointestinal: Reports: None Genitourinary: Reports: None Neuro/Psych: Reports: None Musculoskeletal: Reports: None Cancer: Reports: None - Surgical History General Surgical History: Reports: Orthopedic (conveyor fell on feet multiple surgeries ) - Family History Family History: Reports: Unknown - Social History Smoking Status: Former smoker Hx Substance Use: No Alcohol Screening: None Physical Exam - Physical Exam Appearance: Well-appearing, No pain distress, Well-nourished Eyes: MAUREEN, EOMI, Conjunctiva clear ENT: Ears normal, Nose normal, Oropharynx normal (Sl erythrema), Erythema (over nasal structure and adjoining facial region. Tenderness Lt facial region ) Neck: Supple (Tenderness Lt ant cervical region with lymphadenopathy) Respiratory: Airway patent, Breath sounds clear, Breath sounds equal, Respirations nonlabored Cardiovascular: RRR, Pulses normal, No rub, No murmur GI/: Soft, Nontender, No masses, Bowel sounds normal, No Organomegaly Musculoskeletal: Normal strength, ROM intact, No edema, No calf tenderness Skin: Warm, Dry, Normal color Neurological: Sensation intact, Motor intact, Reflexes intact, Cranial nerves intact, Alert, Oriented Psychiatric: Affect appropriate, Mood appropriate Critical Care Note - Critical Care Note Total Time (mins): 60 Course - Course Hematology/Chemistry: 11/14/18 08:17 11/14/18 08:17 Vital Signs: Temp Pulse Resp BP Pulse Ox 11/14/18 07:35 97.4 F L 81 20 134/91 H 94 L Departure - Departure Time of Disposition: 09:55 Disposition: HOME SELF-CARE Discharge Problem: Sinusitis, acute, Erysipelas Instructions: Cellulitis (ED), Sinusitis (ED) Condition: Good Pt referred to PMD for follow-up: Yes (Dr Mcgrath on Friday) IPMP verified?: No Additional Instructions: Stop Toradol Rest Force oral fluids/clear liquids Apply warm moist heat to facial region periodically Take Tylenol Tabs 2 every 4 hrs for pain as needed Return to ER if pain or redness worsens Prescriptions: Amoxicillin/Potassium Clav [Augmentin 875-125 mg Tab] 1 tab PO Q12HR #30 tablet Amoxicillin/Potassium Clav [Augmentin 875-125 Tablet] 1 each PO BID #20 tablet Prednisone 10 mg PO DAILYWM #20 tablet Prednisone 10 mg PO DAILYWM #20 tablet Allergies/Adverse Reactions: Allergies codeine [From Tylenol-Codeine #3] Adverse Reaction (Verified 11/14/18 07:39) "GET REAL HOT" Home Medications: Ambulatory Orders Metformin HCl 250 mg PO BID 11/10/18 Amoxicillin/Potassium Clav [Augmentin 875-125 Tablet] 1 each PO BID #20 tablet 11/14/18 Amoxicillin/Potassium Clav [Augmentin 875-125 mg Tab] 1 tab PO Q12HR #30 tablet 11/14/18 Cyclobenzaprine HCl 10 mg PO TID PRN 11/14/18 Ketorolac Tromethamine [Toradol] 10 mg PO Q6HR PRN 11/14/18 Prednisone 10 mg PO DAILYWM #20 tablet 11/14/18 Prednisone 10 mg PO DAILYWM #20 tablet 11/14/18 Disposition Discussed With: Patient
--- NOTE | 2018-11-14 09:07 | CT ---
EXAM: CT maxillofacial bones without contrast History. Facial swelling and pain Comparison. None Technique Axial scans acquired at 3 mm slice thicknesses without contrast. Coronal and sagittal sequence compl eted FINDINGS There is diffuse soft tissue swelling or cellulitis seen adjacent to the nasal bone as well as some s oft tissue swelling or cellulitis adjacent to the anterior wall of the left maxillary sinus. No disc rete fluid collection abscess is seen. Right and left globe, and retroconal soft tissues intact. There is an air-fluid level of the right maxillary sinus and left sphenoid sinus. Ostiomeatal comple xes are patent. Impression There is diffuse paranasal cellulitis. Additional cellulitis or soft tissue swelling seen adjacent t o the antral wall left maxillary sinus with minimal left infraorbital soft tissue swelling. No local ized fluid collection is seen within limitations of a noncontrast CT. Air-fluid levels right maxillary ethmoid sinus, correlate clinically regarding acute sinusitis
[2018-11-14] MEDS ORDERED: LIDOCAINE HCL 1% SDV IM STA (09:22)
[2018-11-14] MEDS ORDERED: SOLU-MEDROL 125 MG IM STA (09:22)
[2018-11-14] MEDS ORDERED: ROCEPHIN IM STA (09:22)
== END 2018-11-14 10:01 | disposition home or self-care (01) ==
LOC: ED 07:35
DX: J01.90 Acute sinusitis, unspecified (principal); A46 Erysipelas; E11.9 Type 2 diabetes mellitus without complications; E78.5 Hyperlipidemia, unspecified; I10 Essential (primary) hypertension; Z79.899 Other long term (current) drug therapy
CPT/HCPCS: 36415; 80053; 82550; 84484; 85025; 85651; 87651; 93005; 93010; 96372; 99283

== ENCOUNTER 2019-02-02 23:25 | Emergency (ER) ==
[2019-02-02 23:39] VITALS: BP 157/92; TEMP 98; BMI 30.9
[2019-02-02] MEDS ORDERED: AUGMENTIN 875-125 MG TAB PO STA (23:53)
[2019-02-02] MEDS ORDERED: BOOSTRIX IM ONE (23:53)
--- NOTE | 2019-02-02 23:56 | ED.PDOC ---
General ED Provider: Dr. HAM RAMOS Chief Complaint: Hand Pain/Injury Stated Complaint: thinks he has a wood splint in the right hand after he got injured 3 weeks ago. Has been painful since. Time Seen by Physician: 23:45 Mode of Arrival: Walk-In Information Source: Patient Exam Limitations: No limitations Primary Care Provider: NIRMALA MCGRATH Nursing and Triage Documentation Reviewed and Agree: Yes Does patient meet sepsis criteria?: No System Inflammatory Response Syndrome: Not Applicable Sepsis Protocol: For patient's 13 years and over: Temp is 96.8 and below OR 101 and greater Pulse >90 BPM Resp >20/minute Acutely Altered Mental Status Are patient's symptoms suggestive of a new infection, such as: -Pneumonia -Skin, Soft Tissue -Endocarditis -UTI -Bone, Joint Infection -Implantable Device -Acute Abdominal Infection -Wound Infection -Meningitis -Blood Stream Catheter Infection -Unknown Review of Systems - Review Of Systems Constitutional: Reports: No symptoms Eyes: Reports: No symptoms Ears, Nose, Mouth, Throat: Reports: No symptoms Respiratory: Reports: No symptoms Cardiac: Reports: No symptoms GI: Reports: No symptoms : Reports: No symptoms Musculoskeletal: Reports: No symptoms Skin: Reports: Other (right palm of hand swelling with an open wound ) Neurological: Reports: No symptoms Endocrine: Reports: No symptoms Hematologic/Lymphatic: Reports: No symptoms All Other Systems: Reviewed and Negative Past Medical History - Past Medical History Previously Healthy: Yes Endocrine: Reports: DM 2, Dyslipidemia Cardiovascular: Reports: Hypertension Respiratory: Reports: None, Unknown Hematological: Reports: None Gastrointestinal: Reports: None Genitourinary: Reports: None Neuro/Psych: Reports: None Musculoskeletal: Reports: None Cancer: Reports: None - Surgical History General Surgical History: Reports: Orthopedic (conveyor fell on feet multiple surgeries ) - Family History Family History: Reports: Unknown - Social History Smoking Status: Former smoker Hx Substance Use: No Alcohol Screening: None - Immunizations Tetanus Shot up to Date: No (unsure of last immun.) Physical Exam - Physical Exam Appearance: Ill-appearing Ill-appearing: Mild Pain Distress: Moderate Eyes: MAUREEN, EOMI, Conjunctiva clear ENT: Nose normal, Oropharynx normal Neck: Supple Respiratory: Airway patent, Breath sounds clear, Breath sounds equal, Respirations nonlabored Cardiovascular: RRR, Pulses normal, No rub, No murmur GI/: Soft, Nontender, No masses, Bowel sounds normal, No Organomegaly Skin: Warm, Dry Neurological: Alert, Oriented, Disoriented, Alert to verbal, Alert to pain Procedures - Foreign Body Removal Location of Foreign Object: right Palm Foreign Object: wooden Splinter Depth of Object: subcutenous Type of Anesthesia: None Prep: Hibiclens Irrigation: No Skin Incised: No Instruments Used: Yes: Forceps Foreign Body Identified and Removed: Yes (2 cm wooden splinter ) Re-Evaluation - Re-Evaluation Time of Re-Evaluation: 00:10 Status: Improved Pain Level: better Critical Care Note - Critical Care Note Total Time (mins): 0 Course - Course Orders, Labs, Meds: Orders Category Date Time Status Amoxicillin/Potassium Clav [Augmentin 875-125 mg Tab] MEDS 02/02/19 23:53 Discontinued 1 tab PO ONCE STA Diphth,Pertuss(Acell),Tet Vac [Boostrix] MEDS 02/02/19 23:53 Discontinued 0.5 ml IM .ONCE ONE Medications Discontinued Medications Generic Name Dose Route Start Last Admin Trade Name Freq PRN Reason Stop Dose Admin Amoxicillin/Clavulanate Potassium 1 tab 02/02/19 23:53 02/03/19 00:02 Augmentin 875-125 Mg Tab PO 02/02/19 23:54 1 tab ONCE STA Administration Diphtheria/Pertussis/Tetanus Vacc 0.5 ml 02/02/19 23:53 02/03/19 00:02 Boostrix IM 02/02/19 23:54 0.5 ml .ONCE ONE Administration Vital Signs: Temp Pulse Resp BP Pulse Ox 02/02/19 23:26 98 F 72 20 157/92 H 98 Departure - Departure Time of Disposition: 00:10 Disposition: HOME SELF-CARE Discharge Problem: Foreign body (FB) in soft tissue Instructions: Soft Tissue Foreign Body (ED) Condition: Fair Pt referred to PMD for follow-up: Yes IPMP verified?: No Additional Instructions: Take antibiotics until gone Follow up with PCP in 3 days Keep wound clean and Dry Prescriptions: Amoxicillin/Potassium Clav [Augmentin 500-125 mg Tab] 1 tab PO Q8HR #30 tablet Ibuprofen [Motrin] 600 mg PO Q6H PRN #30 tablet PRN Reason: Analgesia Allergies/Adverse Reactions: Allergies codeine [From Tylenol-Codeine #3] Adverse Reaction (Verified 02/02/19 23:34) "GET REAL HOT" Home Medications: Ambulatory Orders Metformin HCl 250 mg PO BID 11/10/18 Amoxicillin/Potassium Clav [Augmentin 500-125 mg Tab] 1 tab PO Q8HR #30 tablet 02/02/19 Ibuprofen [Motrin] 600 mg PO Q6H PRN #30 tablet 02/02/19 Disposition Discussed With: Patient
== END 2019-02-03 00:28 | disposition home or self-care (01) ==
LOC: ED 23:25
DX: S61.441A Puncture wound with foreign body of right hand, initial encounter (principal)
CPT/HCPCS: 90471; 90715; 99282

== ENCOUNTER 2019-03-25 18:12 | Emergency (ER) ==
[2019-03-25 18:15] VITALS: BP 129/87; TEMP 98.9; BMI 31.2
[2019-03-25] MEDS ORDERED: MOTRIN PO STA (19:18)
--- NOTE | 2019-03-25 20:51 | ED.PDOC ---
General ED Provider: Dr. HAM RAMOS Chief Complaint: Wrist Pain/Injury Stated Complaint: started having right wrist pain today. Denies any Trauma. Placed the wrist in an Michael wrap. Time Seen by Physician: 19:00 Mode of Arrival: Walk-In Information Source: Patient Primary Care Provider: NIRMALA MCGRATH Nursing and Triage Documentation Reviewed and Agree: Yes Does patient meet sepsis criteria?: No System Inflammatory Response Syndrome: Not Applicable Sepsis Protocol: For patient's 13 years and over: Temp is 96.8 and below OR 101 and greater Pulse >90 BPM Resp >20/minute Acutely Altered Mental Status Are patient's symptoms suggestive of a new infection, such as: -Pneumonia -Skin, Soft Tissue -Endocarditis -UTI -Bone, Joint Infection -Implantable Device -Acute Abdominal Infection -Wound Infection -Meningitis -Blood Stream Catheter Infection -Unknown Review of Systems - Review Of Systems Constitutional: Reports: No symptoms Eyes: Reports: No symptoms Ears, Nose, Mouth, Throat: Reports: No symptoms Respiratory: Reports: No symptoms Cardiac: Reports: No symptoms GI: Reports: No symptoms : Reports: No symptoms Musculoskeletal: Reports: Joint pain (Right astudillo ) Skin: Reports: No symptoms Neurological: Reports: No symptoms Endocrine: Reports: No symptoms Hematologic/Lymphatic: Reports: No symptoms All Other Systems: Reviewed and Negative Past Medical History - Past Medical History Previously Healthy: Yes Endocrine: Reports: DM 2, Dyslipidemia Cardiovascular: Reports: Hypertension Respiratory: Reports: None, Unknown Hematological: Reports: None Gastrointestinal: Reports: None Genitourinary: Reports: None Neuro/Psych: Reports: None Musculoskeletal: Reports: None Cancer: Reports: None - Surgical History General Surgical History: Reports: Orthopedic (conveyor fell on feet multiple surgeries ) - Family History Family History: Reports: Unknown - Social History Smoking Status: Former smoker Hx Substance Use: No Alcohol Screening: None Physical Exam - Physical Exam Appearance: Well-appearing, Obese Pain Distress: Moderate Eyes: MAUREEN, EOMI, Conjunctiva clear ENT: Nose normal, Oropharynx normal Neck: Supple Respiratory: Airway patent, Breath sounds clear, Breath sounds equal, Respirations nonlabored Cardiovascular: RRR, Pulses normal, No rub, No murmur Musculoskeletal: Normal strength, No edema, No calf tenderness, Limited ROM ( right wrist ) Skin: Warm, Dry, Normal color Neurological: Sensation intact, Motor intact, Cranial nerves intact, Alert, Oriented Psychiatric: Affect appropriate, Mood appropriate Interpretation - Radiology Interpretation Radiology Interpretation By: ED Physician Radiology Results: Negative Exam Interpreted: Other (right wrist x ray ) Re-Evaluation - Re-Evaluation Time of Re-Evaluation: 20:50 Status: Improved Pain Level: better after a splint Critical Care Note - Critical Care Note Total Time (mins): 0 Course - Course Orders, Labs, Meds: Orders Category Date Time Status ED SPLINT APPLICATION .ONCE EMERGENCY 03/25/19 19:17 Active Ibuprofen [Motrin] MEDS 03/25/19 19:18 Discontinued 800 mg PO ONCE STA WRIST, RIGHT 3 VIEWS Stat RADS 03/25/19 19:17 Completed Medications Discontinued Medications Generic Name Dose Route Start Last Admin Trade Name Freq PRN Reason Stop Dose Admin Ibuprofen 800 mg 03/25/19 19:18 03/25/19 20:51 Motrin PO 03/25/19 19:19 800 mg ONCE STA Administration Vital Signs: Temp Pulse Resp BP Pulse Ox 03/25/19 18:12 98.9 F 78 18 129/87 94 L Departure - Departure Time of Disposition: 20:54 Disposition: HOME SELF-CARE Discharge Problem: Wrist sprain Qualifiers: Encounter type: initial encounter Laterality: right Qualified Code(s): S63.501A - Unspecified sprain of right wrist, initial encounter Instructions: Wrist Sprain (ED) Condition: Stable Pt referred to PMD for follow-up: Yes IPMP verified?: No Additional Instructions: Take Medications as prescribed Follow up with PCP in 3-5 days Return if worse Prescriptions: Ibuprofen [Motrin] 600 mg PO Q6H PRN #30 tablet PRN Reason: Analgesia Allergies/Adverse Reactions: Allergies codeine [From Tylenol-Codeine #3] Adverse Reaction (Verified 03/25/19 18:15) "GET REAL HOT" Home Medications: Ambulatory Orders Metformin HCl 250 mg PO BID 11/10/18 Ibuprofen [Motrin] 600 mg PO Q6H PRN #30 tablet 03/25/19
--- NOTE | 2019-03-25 20:56 | DI ---
Exam: Right wrist three-view History: This pain without injury Findings / impression: No acute bony or articular abnormality of the right wrist is seen. 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 Possible chondrocalcinosis. Negative exam otherwise.
== END 2019-03-25 21:05 | disposition home or self-care (01) ==
LOC: ED 18:12
DX: S63.501A Unspecified sprain of right wrist, initial encounter (principal); X50.1XXA Overexertion from prolonged static or awkward postures, initial encounter
CPT/HCPCS: 99282